=== PATIENT | female | born 1970 | race Caucasian/White ===

== ENCOUNTER → 2018-06-26 09:57 | Outpatient (CLI) | payer BC, SELFPAY ==
--- NOTE | 2018-06-26 10:03 | XR_ITS ---
XR knee RT 3V HISTORY: ITS.REASON: RT KNEE PAIN ORDERING PHYSICIAN: Ann Marie Payton MD PATIENT AGE: 47 years COMPARISON: None FINDINGS: No fracture or dislocation. No lytic or blastic change. Normal mineralization. No significant arthritic changes evident. No other significant findings IMPRESSION: Negative Knee
== END ==
PROVIDERS: PCP Family Medicine; Visit Provider Emergency Medicine
DX: M25.561 Pain in right knee (principal)
CPT/HCPCS: 73562

== ENCOUNTER → 2021-02-08 11:58 | Outpatient (CLI) | payer BC, SELFPAY | PROVIDERS: Visit Provider Nurse Practitioner | DX: U07.1 COVID-19 (principal) | CPT/HCPCS: C9803; U0003; U0005 ==

== ENCOUNTER 2021-02-08 12:07 | Emergency (ER) | payer BC, SELFPAY ==
[2021-02-08 13:26] VITALS: BP 117/80; PULSE 95; RESP 18; TEMP 36.9; O2SAT 97; BMI 38.2
[2021-02-08 14:10] LABS: UTC Strep Screen (Rapid) Negative (Negative)
[2021-02-08 14:11] LABS: UTC Influenza A Antigen Positive (Negative); UTC Influenza B Antigen Negative (Negative)
--- NOTE | 2021-02-08 14:18 | HMH.EDUTC ---
[facility] [place] Clinical Impression: Influenza Disposition: Home, Self-Care Condition on Discharge: Good Instructions: How to Avoid a Cold or Flu, Influenza, DI for Influenza -- Adult Additional Instructions: ? Lots of rest ? Increase Fluids water, Gatorade, powerade, pedialyte,if /toddler/child ? Alternate Tylenol and / or ibuprofen as discussed for fever, aches, chills Follow up IMMEDIATELY with your family doctor for new or worsening Symptoms OR no noticeable improvement over the next 48-72 hours, 911 for difficulty or breathing ? You or your child area contagious until no fever, aches, chills for 24 hours with medication for symptoms ? Help Prevent the spread of influenza: ? Wash your hands often. Use soap and water. Wash your hands after you use the bathroom, change a child's diapers, or sneeze. Wash your hands before you prepare or eat food. Use gel hand cleanser that has 60% alcohol, when soap and water are not available. Do not touch your eyes, nose, or mouth unless you have washed your hands first. ? Cover your mouth when you sneeze or cough. Cough into a tissue or the bend of your arm. If you use a tissue, throw it away immediately and wash your hands. ? Clean shared items with a germ-killing smoking pipes cleaner. Clean table surfaces, doorknobs, and light switches. Do not share towels, silverware, and dishes with people who are sick. Wash bed sheets, towels, silverware, and dishes with soap and water. ? Wear a mask over your mouth and nose if you are sick. The face mask may help protect others from becoming infected with the flu. Wear the mask when in common areas of your home or if you seek care with a healthcare provider. ? Stay away from others if you are sick. Stay at home until 24 hours after your fever and symptoms are gone. Over the counter Flu and cold medication may help with symptoms Prescriptions: Brompheniramine/Pseudoephed/Dm [Bromfed Dm Cough Syrup] 5 - 10 ml PO Q46H PRN #200 ml PRN Reason: Cough Transmission Status: Pending to [id number] Referrals: Richard Mora MD [Primary Care Provider] - As needed Forms: Work/School Release Time of Disposition: 14:19 Medical Decision Making - Juan Inquiry Pt receiving controlled substance: No Juan was queried for this patient: No Vital Signs: 02/08/21 13:26 Temperature 98.4 F Temperature Source Oral Pulse Rate [Right Brachial] 95 H Respiratory Rate 18 Blood Pressure [Right Radial Artery] 117/80 Blood Pressure Mean [Right Radial Artery] 92 Blood Pressure Source [Right Radial Artery] Automatic Cuff Blood Pressure Position [Right Radial Artery] Sitting 02 Sat by Pulse Oximetry 97 Oxygen Delivery Method Room Air - Lab Data Lab results reviewed: Yes: I reviewed the patient's lab results. Lab Results 02/08/21 14:07: Influenza Type A Ag Positive A, Influenza Type B Ag Negative 02/08/21 14:07: Strep Scn Rapid Clinic Negative Orders (Tests/Meds): ORDERS Category Date Time Status Strep Screen Confirmation Stat Micro 02/08/21 14:07 Received Medical Decision Narrative: Discussed Tamiflu with patient and she declined states that she will take OTC cold medications instead [facility] [place] - General Stated complaint: flu symptoms Time Seen by Provider: 02/08/21 14:18 Mode of Arrival: Ambulatory Source of Information: Patient Limitations: No Limitations Description of Symptoms (Recalled from Triage Doc. by RN): Fever, Sore throat, fatigue, nausea x2 days - was rapid covid tested earlier, still waiting for results HEENT Symptoms (Recalled from RN notes): No Resp Symptoms (Recalled from RN notes): Yes Skin Symptoms (Recalled from RN notes): No MS Symptoms (Recalled from RN notes): No Functional Status (Recalled from RN notes): wnl - History of Present Illness Provider Complaint: Patient states that has been having body aches, chills, scratchy throat and cough States that she feels like she may have the flu States that today she was still
[2021-02-08 14:23] VITALS: BP 117/80; PULSE 95; RESP 18; TEMP 36.9; O2SAT 97
== END 2021-02-08 14:40 | disposition home or self-care (01) ==
PROVIDERS: Emergency Provider Nurse Practitioner; PCP Family Medicine
DX: J10.1 Influenza due to other identified influenza virus with other respiratory manifestations (principal); U07.1 COVID-19
CPT/HCPCS: 87804; 87880; 99203; G0463

== ENCOUNTER → 2021-02-22 10:31 | Outpatient (CLI) | payer BC, SELFPAY | PROVIDERS: Visit Provider Nurse Practitioner | DX: U07.1 COVID-19 (principal) | CPT/HCPCS: C9803; U0003; U0005 ==

== ENCOUNTER → 2022-11-05 15:02 | Outpatient (CLI) | payer BC, SELFPAY ==
--- NOTE | 2022-11-05 15:07 | XR_ITS ---
FINAL REPORT CLINICAL HISTORY: ACUTE PAIN AND SWELLING FINDINGS: AP, lateral and oblique views of the left knee were obtained. There is no prior exam for comparison. There is no acute osseous abnormality of the left knee. The joint space is preserved. There is no joint effusion. The soft tissues are normal. There is no joint effusion. IMPRESSION: No acute osseous abnormality of the left knee. Reviewed, Interpreted and Dictated by Nataly Shen MD Transcribed by Tonya Wisdom Authenticated and [facility]
== END ==
PROVIDERS: PCP Family Medicine; Visit Provider Family Medicine
DX: M25.562 Pain in left knee (principal)
CPT/HCPCS: 73562

== ENCOUNTER → 2022-12-04 14:58 | Outpatient (CLI) | payer BC, SELFPAY ==
--- NOTE | 2022-12-04 15:01 | MR_ITS ---
FINAL REPORT CLINICAL HISTORY: JOINT LAXITYOF LEFT KNEE COMPARISON: None FINDINGS: Multiplanar MR imaging of the left knee was performed without contrast. There is a tear of the posterior horn of the medial meniscus. The lateral meniscus is intact. The anterior and posterior cruciate ligaments are intact. Medial collateral ligament sprain is noted. The lateral ligamentous complex is intact. There is proximal patellar tendinitis. There is no evidence of fracture. No focal abnormality is identified of the articular cartilage. A small joint effusion is seen. The musculature is intact. A small popliteal cyst is present. IMPRESSION: Medial meniscus posterior horn tear. MCL sprain. Proximal patellar tendinitis. Small joint effusion. Reviewed, Interpreted and Dictated by Aamir Arriaga III, MD Transcribed by Mckenna Lyles Authenticated and [facility]
== END ==
LOC: RAD 14:59
PROVIDERS: PCP Family Medicine; Visit Provider Family Medicine
DX: M23.8X2 Other internal derangements of left knee (principal); M25.562 Pain in left knee
CPT/HCPCS: 73721

== ENCOUNTER → 2023-01-28 14:41 | Outpatient (CLI) | payer BC, SELFPAY ==
[2023-01-28 15:09] LABS: Basophils % 0.4 % (0.1-2.0); Eosinophils # 0.1 K/mm3 (0.0-0.4); Eosinophils % 3.1 % (0.1-12.0); Hematocrit 39.8 % (37.0-47.0); Hemoglobin 13.9 g/dL (12.2-16.2); Lymphocytes # 2.2 K/mm3 (0.7-4.5); Lymphocytes % 48.3 % (10-50); Mean Corpuscular HGB Conc 34.9 g/dL (31.8-35.4); Mean Corpuscular Hemoglobin 31.1 pg (27.0-31.2); Mean Corpuscular Volume 88.9 fl (81-99); Mean Platelet Volume 7.2 fl (7.4-10.4); Monocytes # 0.3 K/mm3 (0.1-1.0); Monocytes % 6.5 % (1.7-9.3); Neutrophils # 1.9 K/mm3 (1.8-7.8); Neutrophils % 41.8 % (37.0-80.0); Platelet Count 226 K/mm3 (142-424); Red Blood Count 4.47 M/mm3 (4.20-5.40); Red Cell Distribution Width 12.8 % (11.5-17.5); White Blood Count 4.5 K/mm3 (4.8-10.8)
[2023-01-28 15:30] LABS: Anion Gap 10.2 mEq/L (5-15); Blood Urea Nitrogen 12 mg/dl (7-17); Calcium 8.6 mg/dl (8.4-10.2); Carbon Dioxide 26 mmol/L (22.0-30.0); Chloride 102 mmol/L (98-107); Estimated Glomerular Filt Rate 89 ml/min (>60); GFR (African American) 107 ML/MIN (>60); Glucose 85 mg/dl (74-100); Potassium 4.2 mmoL/L (3.5-5.1); Sodium 134 mmol/L (136-145)
== END ==
PROVIDERS: PCP Family Medicine; Visit Provider Orthopaedic Surgery Adult Reconstructive Orthopaedic Surgery
DX: Z01.812 Encounter for preprocedural laboratory examination (principal); M25.562 Pain in left knee
CPT/HCPCS: 36415; 80048; 85025; 87635

== ENCOUNTER 2023-07-03 11:27 | Day surgery (SDC) | payer BC, SELFPAY ==
[2023-07-01 12:59] VITALS: BMI 31.6
[2023-07-03 11:48] VITALS: BP 130/76; PULSE 95; RESP 18; TEMP 36.4; O2SAT 96
[2023-07-03] MEDS: LACTATED RINGERS 1000ML 1,000 ML 25 ML IV (11:58)
--- NOTE | 2023-07-03 12:59 | P.PNANES_ITS ---
[facility] Disclaimer: The information contained in this section may have been updated after the patient was seen, as this information can be updated by other users. Medical History Hypothyroidism Surgical History H/O: hysterectomy History of medial meniscus repair of left knee History of medial meniscus repair of left knee Family History Other No significant family history Social History Smoking Status: Never smoker alcohol intake: never substance use type: denies use current occupational status: employed Travel in the last 8 weeks: None [facility] Anesthesia Checklist Patient Identification Patient Identification: Verbal (Name & ) Structural Data Admitted From: Home Planned Operative Procedure/s: colonoscopy Consent for Planned Operative Procedure(s) Verified: Yes Airway Assessment Mallampati Score:: Class II C-Spine Mobility Assessed: Yes TMJ Mobility Assessed: Yes Dentition: Good Dentition Neurological Assessment Level of Consciousness: Awake, Alert and Appropriate Anesthesia Plan Anesthesia Risk discussed: Yes Anesthesia Plan: Verified ASA Class: II Anesthesia Type: MAC
[2023-07-03 13:06] VITALS: BP 86/51; PULSE 86; RESP 18; TEMP 36.9; O2SAT 94
--- NOTE | 2023-07-03 13:09 | P.PCN_ITS ---
Procedure: Date: 07/03/23 Patient Date of :: 1970 Procedure Performed:: Colonoscopy Indications:: Patient is a 52-year-old who presents for screening colonoscopy for colorectal cancer Performing Provider:: Robert Pugh MD Referring Provider:: Abdon Waldrop MD Sedation:: See RN record Procedure:: After placing the patient in the left lateral decubitus position, the colonoscopy was gently inserted into the rectum and under direct visualization advanced to the cecum which was identified by transillumination in the right lower quadrant, identification of the ileocecal valve, appendiceal orifice, and cecal strap. Color, texture, mucosa, and anatomy of the colon were carefully examined with the scope. Findings:: The quality of the bowel preparation was fair. Time was spent irrigating and cleansing the mucosa with evacuation of a large amount of brown liquid. The examined colon appeared normal. Internal hemorrhoids were seen on retroflexion view of the rectum. Recommendations:: Recommend repeat colonoscopy in 5 years Patient has a history of chronic constipation. Recommend daily fiber sup plementation, for examples Metamucil, Citrucel, or Benefiber. Patient can also try MiraLAX. Complications:: None Estimated blood obtained (mL): 0 Colonoscopy Component Colonoscopy Component Was a colonoscopy performed during today's procedure?: Yes Recommended follow up colonoscopy of at least 10 years?: Yes
[2023-07-03 13:16] VITALS: BP 93/57; PULSE 84; RESP 18; TEMP 36.9; O2SAT 95
[2023-07-03 13:26] VITALS: BP 111/70; PULSE 70; RESP 18; TEMP 36.9; O2SAT 97
[2023-07-03 13:36] VITALS: BP 115/76; PULSE 75; RESP 18; TEMP 36.9; O2SAT 99
== END 2023-07-03 13:45 | disposition home or self-care (01) ==
PROVIDERS: PCP Family Medicine; Visit Provider Internal Medicine
PROC: 0DJD8ZZ Inspection of Lower Intestinal Tract, Via Natural or Artificial Opening Endoscopic (ICD-10-PCS; CPT 45378; principal; 2023-07-03 13:30)
DX: Z12.11 Encounter for screening for malignant neoplasm of colon (principal); K64.8 Other hemorrhoids; K59.09 Other constipation
CPT/HCPCS: 45378

== ENCOUNTER 2023-10-16 14:38 | Outpatient (CLI) | payer BC, SELFPAY ==
--- NOTE | 2023-10-16 14:40 | MR_ITS ---
FINAL REPORT CLINICAL HISTORY: LEFT KNEE PAIN RECENT SURGERY IN JANUARY 2023 GIVING OUT , POPPING , ANTERIOR KNEE PAIN COMPARISON: 12/04/2022 FINDINGS: Multiplanar MR imaging of the right knee was performed without contrast. There are postoperative changes of a partial medial meniscectomy. There is abnormal signal in the posterior horn of the medial meniscus, and a different configuration than seen on the prior exam of 2022, worrisome for a tear, although postoperative changes are not excluded. The lateral meniscus is intact. The anterior and posterior cruciate ligaments are intact. The medial collateral ligament and lateral ligamentous complex are intact. The patellar and quadriceps tendons are intact. There is no evidence of fracture. No focal abnormality is identified of the articular cartilage. A small joint effusion is seen. The musculature is intact. A small popliteal cyst is present. IMPRESSION: Postoperative changes of a partial medial meniscectomy. There is abnormal signal in the posterior horn of the medial meniscus and a different configuration than seen on the prior exam, worrisome for a tear, although postoperative changes not excluded. Reviewed, Interpreted and Dictated by Aamir Arriaga III, MD Transcribed by Shelby Basilio Authenticated and [facility]
== END 2023-10-16 23:59 | disposition home or self-care (01) ==
LOC: RAD 14:39
PROVIDERS: PCP Family Medicine; Visit Provider Physician Assistant
DX: M25.562 Pain in left knee (principal)
CPT/HCPCS: 73721

== ENCOUNTER 2024-05-28 09:46 | Outpatient (RCR) | payer MEDICAID, SELFPAY | END 2024-05-28 23:59 | disposition home or self-care (01) | LOC: PT 09:46 | PROVIDERS: PCP Family Medicine; Visit Provider Orthopaedic Surgery Adult Reconstructive Orthopaedic Surgery | DX: Z96.652 Presence of left artificial knee joint (principal) | CPT/HCPCS: 97163 ==

== ENCOUNTER 2024-07-10 09:40 | Outpatient (CLI) | payer MEDICAID, SELFPAY ==
--- NOTE | 2024-07-10 09:43 | MR_ITS ---
FINAL REPORT CLINICAL HISTORY: RT KNEE PAIN medial sided knee pain instability unable to fully straighten no injury COMPARISON: 10/16/2023 FINDINGS: Multi planar MR imaging was performed of the right knee. The anterior and posterior cruciate ligaments are intact. The quadriceps and patellar tendons are intact. There is a large tear of the posterior horn of the medial meniscus. The lateral meniscus is intact. The medial and lateral collateral ligaments appear intact. The medial and lateral retinacula appear intact. There is no evidence of bone marrow edema or osteochondral defect. A small popliteal cyst is present, with fluid extending along the anterior and medial head of the gastrocnemius consistent with a small leak. A trace joint effusion is present. IMPRESSION: Large tear posterior horn of the medial meniscus. Small popliteal cyst with a leak. Reviewed, Interpreted and Dictated by Randell Richardson MD Transcribed by Shelby Basilio Authenticated and [facility]
== END 2024-07-10 23:59 | disposition home or self-care (01) ==
LOC: RAD 09:41
PROVIDERS: PCP Family Medicine; Visit Provider Physician Assistant
DX: S83.241A Other tear of medial meniscus, current injury, right knee, initial encounter (principal); M71.21 Synovial cyst of popliteal space [Baker], right knee
CPT/HCPCS: 73721

== ENCOUNTER 2024-07-10 16:00 | Outpatient (RCR) | payer MEDICAID, SELFPAY | END 2024-07-10 23:59 | disposition home or self-care (01) | LOC: PT 16:00 | PROVIDERS: PCP Family Medicine; Visit Provider Orthopaedic Surgery Adult Reconstructive Orthopaedic Surgery | DX: Z47.89 Encounter for other orthopedic aftercare (principal); Z96.652 Presence of left artificial knee joint | CPT/HCPCS: 97110; 97164; 97530 ==

== ENCOUNTER 2024-07-15 16:58 | Outpatient (RCR) | payer MEDICAID, SELFPAY | END 2024-07-15 23:59 | disposition home or self-care (01) | LOC: PT 16:58 | PROVIDERS: PCP Family Medicine; Visit Provider Orthopaedic Surgery Adult Reconstructive Orthopaedic Surgery | DX: Z47.89 Encounter for other orthopedic aftercare (principal); Z96.652 Presence of left artificial knee joint | CPT/HCPCS: 97110; 97530 ==

== ENCOUNTER 2024-09-10 17:00 | Outpatient (RCR) | payer BC, MEDICAID, SELFPAY | END 2024-09-10 23:59 | disposition home or self-care (01) | LOC: PT 17:00 | PROVIDERS: Visit Provider Orthopaedic Surgery Adult Reconstructive Orthopaedic Surgery | DX: Z96.651 Presence of right artificial knee joint (principal); Z47.89 Encounter for other orthopedic aftercare | CPT/HCPCS: 97110; 97162; 97530 ==

== ENCOUNTER 2024-09-25 17:00 | Outpatient (RCR) | payer BC, MEDICAID, SELFPAY | END 2024-09-25 23:59 | disposition home or self-care (01) | LOC: PT 17:00 | PROVIDERS: Visit Provider Orthopaedic Surgery Adult Reconstructive Orthopaedic Surgery | DX: Z47.89 Encounter for other orthopedic aftercare (principal); Z96.651 Presence of right artificial knee joint | CPT/HCPCS: 97110; 97530 ==